=== PATIENT | female | born 1945 | race Caucasian/White ===

== ENCOUNTER 2017-08-23 07:25 | Observation (INO) | payer BC, MEDICARE ==
[~2017-08-23] VITALS: Ht 152.4 cm; Wt 55.8 kg
[~2017-08-23 07:25] MED LIST: ADVAIR 250-501 EACH IH; ASPIRIN81 MG PO; CRESTOR10 MG PO; CYANOCOBAL1000 MCG/M IM; FLUTICASONE NS; MELOXICAM7.5 MG PO; MICARDIS HCT 81 EACH PO; MONTELUKAST SOD10 MG PO; NORCO 7.5-3251 EACH PO; PROAIR HFA INH8.5 GM INH; SERTRALINE HCL50 MG PO
[2017-08-23] MEDS ORDERED: OMEPRAZOLE40 MG PO (08:39)
[2017-08-23] MEDS ORDERED: CEFAZOLIN SOD 1 GM/NS 50ML 50 ML IV ONE (09:00)
[2017-08-23 09:12] LABS: BASOPHILS # (AUTO) 0.1 (0.0-0.1); BASOPHILS % 0.7 % (0.0-1.0); EOSINOPHILS # (AUTO) 0.1 (0.0-0.4); EOSINOPHILS % 1.3 % (0.0-6.0); HEMATOCRIT 40.4 % (34.2-44.1); HEMOGLOBIN 13.3 g/dL (12.0-16.0); LYMPHOCYTES # (AUTO) 2.2 (1.0-3.2); MEAN CORPUSCULAR HGB CONC 32.9 g/dL (31-35); MEAN CORPUSCULAR VOLUME 91.2 fL (81-99); MONOCYTES # (AUTO) 0.9 (0.2-0.8); MONOCYTES % 8.1 % (4.4-11.3); NEUTROPHILS # (AUTO) 7.6 (2.1-6.9); NEUTROPHILS % 69.6 % (38.7-80.0); PLATELET COUNT 272 x10e3/uL (140-360); RED BLOOD COUNT 4.43 x10e6/uL (3.6-5.1)
[2017-08-23 09:25] LABS: ANION GAP 15.7 mmol/L (8-16); BLOOD UREA NITROGEN 14 mg/dL (7-26); BUN/CREATININE RATIO 16 (6-25); CALCIUM 10.4 mg/dL (8.4-10.2); CARBON DIOXIDE 25 mmol/L (22-29); CHLORIDE 103 mmol/L (98-107); CREATININE, SERUM 0.85 mg/dL (0.57-1.11); EST GLOMERULAR FILTRATION RATE > 60 ML/MIN (60-); GLUCOSE 91 mg/dL (74-118); INR 0.86; PARTIAL THROMBOPLASTIN TIME 28.1 seconds (23.8-35.5); POTASSIUM 3.7 mmol/L (3.5-5.1); PROTHROMBIN TIME 12.2 seconds (11.9-14.5); SODIUM 140 mmol/L (136-145)
--- NOTE | 2017-08-23 09:31 | Diagnostic Imaging Report ---
PROCEDURE: Frontal and lateral views of the chest. COMPARISON: None. INDICATIONS: PREOPERATIVE CHEST XRAY FOR CERVICAL SPINE SURGERY FINDINGS: Lines/tubes: None. Lungs: The lungs are well inflated and clear. There is no evidence of pneumonia or pulmonary edema. Pleura: There is no pleural effusion or pneumothorax. Heart and mediastinum: The heart and the mediastinum are normal. Bones: No acute bony abnormality. Anterior cervical spine fusion hardware. IMPRESSION: No acute radiographic abnormality. Dictated by: Osmin Alcocer M.D. on 08/23/2017 at 9:40 Electronically approved by: Osmin Alcocer M.D. on 08/23/2017 at 9:40
[2017-08-23] MEDS ORDERED: GELATIN SPONGE SZ 100 ONE (10:42)
[2017-08-23] MEDS ORDERED: BACITRACIN 50,000 UNIT VIAL ONE (10:42)
[2017-08-23] MEDS ORDERED: THROMBIN FOR SOLN 5,000 UNIT VIAL ONE (10:42)
[2017-08-23] MEDS ORDERED: LACTATED RINGER'S 1,000 ML IV SCH (12:42)
[2017-08-23] MEDS ORDERED: MAGNESIUM/ALUMINUM/SIMETHICONE 30 ML UDC PO PRN (12:45)
[2017-08-23] MEDS ORDERED: PROMETHAZINE HCL (IM) 25 MG/ML VIAL IM PRN (12:45)
[2017-08-23] MEDS ORDERED: ACETAMINOPHEN 325 MG TAB PO PRN (12:45)
[2017-08-23] MEDS ORDERED: HYDROMORPHONE 2MG/ML INJ IV PRN (12:45)
[2017-08-23] MEDS ORDERED: MORPHINE SULFATE 5 MG/ML VIAL IM PRN (12:45)
[2017-08-23] MEDS ORDERED: ALBUTEROL SULFATE HFA 8GM INHALATION AEROSOL INH PRN (12:45)
[2017-08-23] MEDS ORDERED: CARISOPRODOL 350 MG TAB PO PRN (12:45)
[2017-08-23] MEDS ORDERED: ONDANSETRON HCL INJ 2 MG/ML VIAL IV PRN (12:45)
[2017-08-23] MEDS ORDERED: OXYCODONE/ACETAMINOPHEN 5-325 1 EACH TABLET PO PRN ×2 (12:45→23:45)
[2017-08-23] MEDS ORDERED: HYDRALAZINE HCL 20 MG/ML VIAL ONE (13:26)
[2017-08-23] MEDS ORDERED: ONDANSETRON HCL INJ 2 MG/ML VIAL ONE ×2 (13:39→14:29)
[2017-08-23] MEDS ORDERED: MORPHINE SULFATE 2 MG/ML SYR ONE (13:40)
[2017-08-23] MEDS ORDERED: CEFAZOLIN SOD 1 GM/NS 50ML 50 ML IV SCH (14:00)
[2017-08-23 14:27] VITALS: BP 96/61
[2017-08-23] MEDS ORDERED: PROPOFOL IV EMULSION 10 MG/ML 20 ML VIAL ONE (14:29)
[2017-08-23] MEDS ORDERED: ACETAMINOPHEN 1000 MG/100 ML IV ONE (14:29)
[2017-08-23] MEDS ORDERED: ROCURONIUM BROMIDE 10 MG/ML 5ML VIAL ONE (14:29)
[2017-08-23] MEDS ORDERED: LIDOCAINE HCL 2% JELLY 5 ML TUBE ONE (14:29)
[2017-08-23] MEDS ORDERED: SEVOFLURANE INHAL SOLN 250 ML PEN BTL ONE (14:29)
[2017-08-23] MEDS ORDERED: NEOSTIGMINE 5 MG/5ML SYR ONE (14:29)
[2017-08-23] MEDS ORDERED: LIDOCAINE HCL 2% LOCAL INJ 5 ML SDV VIAL INJ ONE (14:29)
[2017-08-23] MEDS ORDERED: GLYCOPYRROLATE INJ 1MG/ 5 ML SYR ONE (14:29)
[2017-08-23] MEDS ORDERED: DEXAMETHASONE SOD PHOS INJ 4 MG/ML VIAL ONE (14:29)
[2017-08-23] MEDS ORDERED: EPHEDRINE SULFATE INJ 50 MG/10 ML SYR ONE (14:29)
[2017-08-23 14:36] VITALS: BP 96/61
[2017-08-23] MEDS: VANCOMYCIN 1GM/NS 250 ML 250 ML IV SCH (15:01)
[2017-08-23] MEDS ORDERED: BUPIVACAINE 0.5%/EPI 30 ML SDV INJ ONE (15:02)
[2017-08-23] MEDS ORDERED: MIDAZOLAM HCL 2 MG/2 ML VIAL ONE (15:22)
[2017-08-23] MEDS ORDERED: FENTANYL CITRATE/PF 100MCG/2 ML INJ ONE (15:22)
[2017-08-23 16:10] VITALS: BP 94/56
[2017-08-23] MEDS: CEFAZOLIN SOD 1 GM VIAL IV SCH (17:23)
[2017-08-23] MEDS: CEPACOL SORE THROAT LOZENGES PO PRN ×2 (19:59→23:34)
[2017-08-23 20:10] VITALS: BP 105/60
[2017-08-23] MEDS ORDERED: ZOLPIDEM TARTRATE 5 MG TAB PO PRN (21:00)
[2017-08-23 23:15] VITALS: BP 125/76
[2017-08-24] MEDS: CEFAZOLIN SOD 1 GM VIAL IV SCH ×2 (02:59→09:52)
[2017-08-24] MEDS: VANCOMYCIN 1GM/NS 250 ML 250 ML IV SCH (02:59)
[2017-08-24 05:00] VITALS: BP 109/72
[2017-08-24] MEDS ORDERED: SALMETEROL/FLUTICASONE 250/50 INH SCH (06:00)
--- NOTE | 2017-08-24 07:45 | Diagnostic Imaging Report ---
PROCEDURE:C-SPINE 2 VIEWS AP \T\ LATERAL TECHNIQUE:AP and lateral views cervical spine INDICATION:Post cervical spine surgery COMPARISON:Patients [facility], DX, SPINE CERVICAL AP\T\LAT FLEX\T\EXT, 11/20/2016, 18:04. FINDINGS: See conclusion. CONCLUSION: 1. C4-5 discectomy with interbody fusion. 2. Expected regional postsurgical changes including anterior paravertebral soft tissue swelling. 3. C5-C6 and C6-C7 ankylosis. Extensive degenerative arthropathy of the facets from C3-C7. 4. C5-C6 and C6-C7 anterior fusion hardware removed relative to October 2016. Dictated by: Yovany Felix M.D. on 08/24/2017 at 7:54 Electronically approved by: Yovany Felix M.D. on 08/24/2017 at 7:54
[2017-08-24 08:26] VITALS: BP 122/83
[2017-08-24] MEDS ORDERED: MELOXICAM 7.5 MG TAB PO SCH (09:00)
[2017-08-24] MEDS ORDERED: PANTOPRAZOLE SOD 40 MG TABEC PO SCH (09:00)
[2017-08-24] MEDS ORDERED: MONTELUKAST SODIUM 10 MG TAB PO SCH (09:00)
[2017-08-24] MEDS ORDERED: TELMISARTAN 40 MG TAB PO SCH (09:00)
[2017-08-24] MEDS ORDERED: SERTRALINE HCL 50 MG TAB PO SCH (09:00)
--- NOTE | 2017-08-25 06:02 | Operative Report ---
DATE OF PROCEDURE: August 23, 2017 PREOPERATIVE DIAGNOSIS: C4-5 spondylosis and foraminal stenosis with radiculopathy above the level of previous C5-7 fusion, M50.121. POSTOPERATIVE DIAGNOSIS: C4-5 spondylosis and foraminal stenosis with radiculopathy above the level of previous C5-7 fusion, M50.121. PROCEDURES 1. C4-5 anterior cervical diskectomy and microsurgical osteophyte resection and allograft fusion, 62429. 2. Preparation of [facility] cortical cancellous allograft, 04668. 3. C4-C5 anterior cervical plating with Synthes ZPN plate, 20854. 4. Removal of C5-7 anterior cervical plate, 55825. 5. Exploration of C5-6 and C6-7 fusion, . ANESTHESIA: General. INDICATIONS: The patient is 72-year-old woman who has previously undergone C5-6 and C6-7 anterior cervical diskectomy and fusion by nm in the distant past. She now presents with recurrent right-sided neck pain and right C5 radiculopathy due to development of spondylosis, facet arthropathy and foraminal stenosis at C4-5, above the level of her previous fusion. She was taken to the operating room for decompression of the C4-C5 segment and extension of her fusion. PROCEDURE: After induction of general anesthesia, the patient was placed on the operating table in supine position. The right side of the neck was prepped and draped in sterile fashion. The fluoroscopic C-arm was positioned in cross-table lateral orientation. A transverse incision was created on the right side of the neck superimposed on the C5 vertebral body as determined by fluoroscopy. The platysma was divided in line with the incision. A subplatysmal dissection was carried out. A plane of dissection was developed medial to the sternocleidomastoid muscle. It was followed through the previous scar layer medial to the carotid sheath to the anterior border the cervical spine. The margins of the esophagus were defined, and the esophagus was retracted to the left. The attachments of the longus coli muscles to the anterolateral aspects of the vertebral bodies of C4 and C5 were divided. The scar overlying the previous anterior cervical plate was resected. Each of the 6 locking screws and bone screws within the previous Synthes plate was unscrewed and removed. The plate was mobilized and removed. The fusion at C5-6 and C6-7 was explored and found to be solid. Attention was directed to the C4-C5 segment. The anterior osteophyte was resected. Kinston posts were inserted into C4 and C5. The [place] distractor was used to distract the disk space. The anterior annulus of the disk was incised with a #11 blade, and the contents of the disk were thoroughly evacuated with angled curets and pituitary rongeurs. The posterior osteophytes were meticulously drilled with a 2-mm cutting bur on a high-speed drill until they were completely removed. The posterior annulus of the disk, herniated disk material and the posterior longitudinal ligament were resected layer by layer until the dura was fully exposed and decompressed. The medial aspects of the uncinate processes were resected bilaterally to further expose and decompress the origins of the corresponding nerve roots. After satisfactory decompression had been achieved, the endplates were prepared for fusion. The disk space was sized and found to be 8 mm in height. A piece of MTF cortical cancellous allograft measuring 8 mm was selected and was loaded onto the Synthes ZPN plate. The construct was inserted into the disk space under distraction and fluoroscopic guidance and tamped in place until the anterior margin of the plate was flush with anterior margin of the vertebral bodies. The plate was then screwed to the endplates of C4 and C5 with 2 pairs of 14-mm screws. All screws were locked. An excellent construct was obtained. The wound was copiously irrigated with Bacitracin solution. Meticulous hemostasis was secured. Retractor was removed. The platysma was closed with 3-0 Vicryl sutures. The skin was closed with 4-0 Monocryl sutures in subcuticular fashion. Steri-Strips and dressing were applied. The patient was awakened, extubated and taken to the postanesthesia care unit in stable condition. No intraoperative complications were encountered. Estimated blood loss was 20 mL. Importantly, a Hemovac drain was placed in the incision overlying the plate prior to closure and will be removed tomorrow. Job#: [id number]
== END 2017-08-24 10:14 | disposition home or self-care (01) ==
LOC: OR 07:25 → IMCU 13:31
PROVIDERS: ADMIT Neurological Surgery; ATTEND Neurological Surgery
DX: M50.121 Cervical disc disorder at C4-C5 level with radiculopathy (principal); M47.22 Other spondylosis with radiculopathy, cervical region; G56.01 Carpal tunnel syndrome, right upper limb; E78.5 Hyperlipidemia, unspecified; I10 Essential (primary) hypertension; J45.909 Unspecified asthma, uncomplicated; M19.90 Unspecified osteoarthritis, unspecified site
CPT/HCPCS: 20931; 22551; 22830; 22845; 22855; 36415; 71020; 72040; 76001; 80048; 85025; 85610; 85730; 86850; 86900; 88300; 88304; 93005; C1713 ×2; C9359; G0378 ×2; J0360; J0690 ×2; J1100; J1170; J2001 ×2; J2250; J2270; J2405; J3370 ×2

== ENCOUNTER → 2017-09-20 | Outpatient (CLI) | payer BC, MEDICARE ==
[~2017-09-20] MED LIST changes: +OMEPRAZOLE40 MG PO
--- NOTE | 2017-09-20 11:39 | Diagnostic Imaging Report ---
PROCEDURE: C-SPINE AP AND LAT WITH FLEX AND EXT COMPARISON: Patients [facility], DX, C-SPINE 2 VIEWS AP \T\ LATERAL, 08/24/2017, 4:42. INDICATIONS: POST CERVICAL SPINE SURGERY FINDINGS: C1 through C7 are visualized on the lateral view. Mild reversal of the cervical lordosis may be related muscle spasm or positioning. Re-demonstration of status post C4-5 discectomy with interbody fusion with metallic plate and transfixing screws which are intact and in adequate alignment. There is mild lumbar lordosis at this level. Degenerative disc disease and spondylosis at the levels above and below the fusion. Flexion and extension views demonstrate no change in alignment. CONCLUSION: Status post anterior fusion of C4-C5 without significant change. Intact hardware with adequate alignment. Pily Maria M.D. Dictated by: Pily Maria M.D. on 09/20/2017 at 11:48 Electronically approved by: Pily Maria M.D. on 09/20/2017 at 11:48
== END ==
LOC: RAD 08:18
PROVIDERS: ATTEND Neurological Surgery
DX: M50.20 Other cervical disc displacement, unspecified cervical region (principal); Z98.1 Arthrodesis status
CPT/HCPCS: 72050

== ENCOUNTER → 2018-03-20 | Outpatient (CLI) | payer BC, MEDICARE ==
--- NOTE | 2018-03-20 14:35 | Diagnostic Imaging Report ---
PROCEDURE: C-SPINE AP AND LAT WITH FLEX AND EXT COMPARISON: Patients [facility], DX, C-SPINE 2 VIEWS AP \T\ LATERAL, 08/24/2017, 4:42. INDICATIONS: EVALUATE FUSION STATUS FINDINGS: C1 through C7 are visualized on the lateral view. No significant change in alignment with flexion and extension. Re-demonstration of status post anterior fusion of C4-C5 with metallic plate and transfixing screws which are intact and in adequate alignment. Prior fusion of C5-C6 and C6-C7. Flexion and extension views demonstrate no change in alignment. The prevertebral soft tissues are not swollen. CONCLUSION: Re-demonstration of status post anterior fusion of C4-C5 without significant interval change. Intact hardware with adequate alignment. Pily Maria M.D. Dictated by: Pily Maria M.D. on 03/20/2018 at 14:39 Electronically approved by: Pily Maria M.D. on 03/20/2018 at 14:39
== END ==
LOC: RAD 12:56
PROVIDERS: ATTEND Neurological Surgery
DX: M50.20 Other cervical disc displacement, unspecified cervical region (principal); Z98.1 Arthrodesis status
CPT/HCPCS: 72050

== ENCOUNTER → 2019-01-09 | Outpatient (CLI) | payer BC, MEDICARE ==
--- NOTE | 2019-01-09 09:04 | Diagnostic Imaging Report ---
Exam: Cervical spine with flexion and extension History: Postsurgical C4-C5 Comparison: None. Findings: The cervical spine is visualized from the skull base to the top of T1 on the lateral radiograph. No acute displaced fracture or subluxation. Soft tissue, ligamentous, and spinal cord abnormalities cannot be excluded on the basis of plain radiography. Fusion hardware and spacer at C4-C5, without loosening or failure. Osseous fusion of the C5 and C6 vertebral bodies. There is 4 mm anterolisthesis of C3 over C4 which is not exacerbated on flexion radiographs. Prevertebral soft tissues are of normal thickness. Atlantoaxial interval is within normal limits. Impression: Fusion hardware at C4-C5, intact. Osseous fusion of the vertebral bodies of C4-C6. 4 mm anterolisthesis of C3 over C4, without exacerbation on flexion or extension radiographs. Signed by: Dr. Lee Low M.D. on 01/09/2019 9:01 AM
== END ==
LOC: RAD 08:27
PROVIDERS: ATTEND Neurological Surgery
DX: M47.892 Other spondylosis, cervical region (principal); M48.02 Spinal stenosis, cervical region; Z98.1 Arthrodesis status
CPT/HCPCS: 72050

== ENCOUNTER → 2019-01-24 | Outpatient (RCR) | payer BC | LOC: PT 08:06 | PROVIDERS: ATTEND Neurological Surgery | DX: M50.121 Cervical disc disorder at C4-C5 level with radiculopathy (principal); M54.2 Cervicalgia; M53.82 Other specified dorsopathies, cervical region ==

== ENCOUNTER 2019-02-14 07:00 | Outpatient (RCR) | payer BC | END 2019-02-23 | LOC: PT 07:00 | PROVIDERS: ATTEND Neurological Surgery | DX: M50.121 Cervical disc disorder at C4-C5 level with radiculopathy (principal); M54.2 Cervicalgia; M53.82 Other specified dorsopathies, cervical region | CPT/HCPCS: 97139 ==